=== PATIENT | male | born 1955 | race American Indian/Alaskan Native ===

== ENCOUNTER 2021-09-06 07:36 | Day surgery (SDC) | payer MEDICARE ==
[~2021-09-06 07:36] MED LIST: SODIUM CHLORIDE 0.9% 1000 ML 1,000 ML IV SCH
--- NOTE | 2021-09-06 08:54 | Anesthesia Consultation ---
Anesthesia Consult and Med Hx Date of service: 09/06/21 - Airway Anesthetic Teeth Evaluation: Edentulous ROM Head & Neck: Adequate Mental/Hyoid Distance: Adequate Mallampati Class: Class II Intubation Access Assessment: Probably Good - Pre-Operative Health Status ASA Pre-Surgery Classification: ASA2 Proposed Anesthetic Plan: MAC - Pulmonary Hx Smoking: Yes (former smoker quit 14yrs) Hx Respiratory Symptoms: No - Cardiovascular System Hx Hypertension: No Hx Heart Attack/AMI: No Hx Percutaneous Transluminal Coronary Angioplasty (PTCA): No Hx Cardia Arrhythmia: No - Central Nervous System CVA: No - Endocrine Hx Renal Disease: No Hx Liver Disease: No Hx Insulin Dependent Diabetes: No Hx Non-Insulin Dependent Diabetes: No Hx Thyroid Disease: No - Other Systems Hx Obesity: No - Additional Comments Anesthesia Medical History Comments: No hx anesthetic complications.
--- NOTE | 2021-09-06 08:54 | Anesthesia Day of Surgery ---
Anesthesia Day of Surgery - Day of Surgery Patient Examined: Yes Patient H&P Reviewed: Yes Patient is NPO: Yes
[2021-09-06] MEDS ORDERED: propofoL 200 MG/20 ML VIAL IV ONE ×3 (10:07→10:39)
--- NOTE | 2021-09-06 11:10 | Procedure Note ---
Date of procedure: 09/06/21 Pre-op diagnosis: H/O GI Bleeding/ H/O NSAID use/ Colon Polyp Screening Post-op diagnosis: other (No Peptic Ulcer Disease noted/ No active UGI Bleeding noted/ Mild to Moderate Erosive Esophagitis/ Gastritis and Gastric Erosion/ Colon Polyps (small-Cecum and Rectum)/Mild to Moderate Left Colon Diverticuli/ Mild to Moderate, Internal Hemorrhoids) Procedure: EGD with Cold Biopsy/ Colonoscopy with Cold Biopsy and Cold Snare Polypectomy Anesthesia: MAC Surgeon: DC WEISS Estimated blood loss: minimal Pathology: list Specimen disposition: to lab Condition: stable (Treat with PPI and OTC Hemorrhoidal medication. Avoid aspirin ad NSAID for 5 days; otherwise resume home medication and F/U in 1 yto 2 weeks ([phone]).)
--- NOTE | 2021-09-06 11:20 | Operative Report ---
DATE OF SURGERY: 09/06/2021 PROCEDURE: Colonoscopy. INDICATIONS: This is a 66-year-old -[place] gentleman who had EGD done because of history of GI bleeding and history of NSAID use. He was not noted to have any active upper GI bleeding noted or any peptic ulcer disease noted. Did have mild to moderate erosive esophagitis, gastric erosion and gastritis. Colonoscopy was done to make sure that there was not any significant lower GI pathology present and also as part of colon polyp screening, initial rectal exam was unremarkable. DESCRIPTION OF PROCEDURE: Instrument was passed through the rectum onto the cecum, which was identified with ileocecal valve and the appendiceal orifice. Visualization was fair to good. There was a 7-8 mm polyp noted in the cecum, which initial attempt was made to remove it with a cold snare polypectomy, which was not completely successful and subsequently it was removed by using a cold biopsy with minimal bleeding. The remaining part of the proximal colon, which was the ascending colon showed normal mucosa. There were a few scattered diverticula noted in the distal transverse colon and in the left colon, which was mild to moderate in type and the rectum showed one small polyp also about 7 mm in diameter, removed by cold biopsy and mild to moderate internal hemorrhoids, not significant enough for banding. ASSESSMENT: Colon polyp screening, two colon polyps noted, one in the cecum, one in the rectum that were removed by cold biopsy. Attempt to remove the cecal polyp by cold snare polypectomy was not completely successful, but it was removed by cold biopsy. Subsequently, mild to moderate internal hemorrhoids, mild to moderate left colon diverticula. The patient will be asked to avoid aspirin and aspirin-related products for the next few days. I encouraged to take fiber supplements. Resume home medications. The patient will be treated with PPI because of the EGD findings of gastric erosion, gastritis. He will also be asked to take some [id number] hemorrhoidal medication. Follow up in the office in 1-2 weeks' time. Procedure was done in the GI lab with assistance of the GI lab team, which included the GI nurse, the school bus technician and with assistance of anesthesia. TID: [id number] RECEIPT: [id number] JUSTIN/NELL
--- NOTE | 2021-09-06 13:09 | Post Anesthesia Evaluation ---
- Post Anesthesia Evaluation Patient Participated: Yes Airway Patent: Yes Stable Respiratory Function: Yes Nausea/Vomiting: No Temp > 96.8F: Yes Pain Manageable: Yes Adequeate Hydration: Yes Anesthesia Complications: No
--- NOTE | 2021-09-06 14:22 | Operative Report ---
DATE OF SURGERY: 09/06/2021 PROCEDURE PERFORMED: EGD with biopsy. INDICATIONS: This is a 66-year-old -[place] gentleman who has a history of taking Goody powders, had noticed some GI bleeding and dyspeptic symptoms. EGD was done to assess for any significant upper GI pathology and to assess for any associated peptic ulcer disease. DESCRIPTION OF PROCEDURE: Procedure was done after getting informed consent with MAC anesthesia. The instrument was passed through the hypopharynx into the esophagus, which showed some [id number] distal erosive esophagitis. Photodocumentation and biopsy was done from the distal esophagus to assess for the severity of the erosive esophagitis. Stomach showed antral erosion and gastritis. Biopsy was done from the gastric antrum, gastric body and angular incisura to assess for the severity of the gastric erosion and to also assess for any associated H. pylori gastritis. The pylorus is patent. The duodenum in the first and second portion appeared normal. There was no evidence of any active upper GI bleeding noted. There was minimal bleeding from the biopsy sites. ASSESSMENT: History of GI bleeding. No active upper GI bleeding noted. [id number] erosive esophagitis, gastric erosion, gastritis. No peptic ulcer disease noted. PLAN: To treat the patient with PPI, have the patient avoid aspirin and aspirin-related products for the next few days. A colonoscopy will be done as part of colon polyp screening. Procedure was done in the GI lab with assistance of the GI lab team, which included the GI nurse, the senior telecommunications technician and with assistance of Anesthesia. TID: [id number] RECEIPT: [id number] SCAR
[2021-09-06 19:50] VITALS: BP 134/76
== END 2021-09-06 07:37 | disposition home or self-care (01) ==
LOC: GIO 07:36
DX: K62.5 Hemorrhage of anus and rectum (principal); K59.04 Chronic idiopathic constipation; B96.81 Helicobacter pylori [H. pylori] as the cause of diseases classified elsewhere; D12.0 Benign neoplasm of cecum; K21.00 Gastro-esophageal reflux disease with esophagitis, without bleeding; K29.50 Unspecified chronic gastritis without bleeding; K63.89 Other specified diseases of intestine; K31.89 Other diseases of stomach and duodenum; Z79.899 Other long term (current) drug therapy; Z98.890 Other specified postprocedural states
CPT/HCPCS: 43239; 45380; 88305; 88342; J2704; J7030